=== PATIENT | male | born 1945 | race Caucasian/White ===

== ENCOUNTER → 2022-03-04 | Outpatient (CLI) | payer OTHER, MEDICARE ==
[~2022-03-04] MED LIST: FERROUS SU325 MG/TAB PO; FLOMAX0.4 MG PO; FOLIC ACID 40400 MCG PO; LIPITOR20 MG PO; VITAMIN C BUFF500 MG PO
== END ==
LOC: COL.RAD 09:08
DX: Z12.2 Encounter for screening for malignant neoplasm of respiratory organs (principal); Z13.6 Encounter for screening for cardiovascular disorders; I71.4 Abdominal aortic aneurysm, without rupture; F17.200 Nicotine dependence, unspecified, uncomplicated

== ENCOUNTER → 2022-05-11 | Outpatient (CLI) | payer OTHER, MEDICARE | LOC: COL.RAD 04-29 12:45 | DX: E04.1 Nontoxic single thyroid nodule (principal) ==